=== PATIENT | female | born 1945 | race Two or more races ===

== ENCOUNTER 2018-09-01 17:06 | Emergency (ER) | payer MEDICARE, MEDICAID ==
[~2018-09-01] VITALS: Ht 170.2 cm; Wt 74.8 kg
--- NOTE | 2018-09-01 17:12 | NUR ---
BIB [id number]. PT AMBULATED FROM EMS [facility] TO W/C, PT WAS TRIAGED AND PLACED IN ER WAITING ROOM. THERE ARE NO AVAILABLE ER BEDS AT THIS TIME.
--- NOTE | 2018-09-01 17:54 | NUR ---
PT PLACED IN ROOM 2A.
--- NOTE | 2018-09-01 18:10 | NUR ---
Pt states she can not recall her home medications at this time, pt states her will come in later with more information.
--- NOTE | 2018-09-01 18:12 | NUR ---
PATIENT BEING SEEN BY JOSEY ROMERO.
[2018-09-01] MEDS ORDERED: LIDOCAINE HCL 2% 20 ML VIAL TP ONE (18:45)
[2018-09-01] MEDS ORDERED: TDAP DIPH,PERTUSS,TET VAC/PF 0.5 ML DISP.SYRIN IM ONE ×2 (18:45→18:47)
[2018-09-01] MEDS ORDERED: SODIUM BICARBONATE 4.2 % (NEUT) 5 ML VIAL TP ONE (18:45)
--- NOTE | 2018-09-01 18:53 | NUR ---
PATIENT SEEN ALREADY FOR ER PHYSICIAN. CXR DONE OF RIGHT ARM
--- NOTE | 2018-09-01 19:10 | NUR ---
REPORTED TO ONCOMING SHIFT NELIA ALVAREZ.
[2018-09-01] MEDS ORDERED: CEFAZOLIN 1 G VIAL IM ONE (20:00)
[2018-09-01] MEDS ORDERED: CEFAZOLIN 1 G VIAL ONE (20:03)
--- NOTE | 2018-09-01 20:20 | NUR ---
Patient discharged to home in stable conditon. Written and verbal after care instructions given. Patient verbalizes understanding of instructions. Pt ambulated out of ER with steady gait, no acute signs of distress, VSS, all belongings taken.
[2018-09-01 20:22] VITALS: BP 142/75
== END 2018-09-01 20:23 | disposition home or self-care (01) ==
LOC: ER 17:07
DX: S63.282A Dislocation of proximal interphalangeal joint of right middle finger, initial encounter (principal); S61.216A Laceration without foreign body of right little finger without damage to nail, initial encounter; W01.0XXA Fall on same level from slipping, tripping and stumbling without subsequent striking against object, initial encounter; Y93.89 Activity, other specified; Y92.89 Other specified places as the place of occurrence of the external cause; Y99.8 Other external cause status
CPT/HCPCS: 12001; 26770; 73130; 90471; 90715; 96372; 99284; J0690; J3490; A4217; A4663

== ENCOUNTER 2018-09-03 17:50 | Emergency (ER) | payer MEDICARE, MEDICAID ==
[~2018-09-03] VITALS: Ht 170.2 cm; Wt 74.8 kg
[2018-09-03] MEDS ORDERED: [UNRECOGNIZED DRUG - REMARK] (18:12)
--- NOTE | 2018-09-03 18:24 | NUR ---
JOSEY MARTINEZ AT BEDSIDE FOR MSE.
[2018-09-03] MEDS ORDERED: CLINDAMYCIN PHOSPHATE 600 MG/4 ML VIAL ONE (18:40)
[2018-09-03] MEDS ORDERED: CLINDAMYCIN PHOSPHATE 600 MG/4 ML VIAL IM ONE (18:45)
--- NOTE | 2018-09-03 19:08 | NUR ---
Patient discharged to home in stable conditon. Written and verbal after care instructions given. Patient verbalizes understanding of instructions. PT D/C W/ PRESCRIPTION. ALL BELONGINGS W/ PT. PT SELF-AMBULATED W/O DIFFICULTY.
[2018-09-03 19:09] VITALS: BP 140/77
== END 2018-09-03 19:09 | disposition home or self-care (01) ==
LOC: ER 17:52
DX: S61.216D Laceration without foreign body of right little finger without damage to nail, subsequent encounter (principal); L08.9 Local infection of the skin and subcutaneous tissue, unspecified; Z88.0 Allergy status to penicillin; W19.XXXD Unspecified fall, subsequent encounter
CPT/HCPCS: 96372; 99283; J3490; A4663

== ENCOUNTER 2018-09-04 18:03 | Emergency (ER) | payer MEDICARE, MEDICAID ==
[~2018-09-04] VITALS: Ht 170.2 cm; Wt 74.8 kg
[~2018-09-04 18:03] MED LIST: [UNRECOGNIZED DRUG - REMARK]
--- NOTE | 2018-09-04 18:47 | NUR ---
Pt seen and examined by Dr Terry.
[2018-09-04 18:52] VITALS: BP 105/56
--- NOTE | 2018-09-04 18:58 | NUR ---
Patient discharged to home in stable conditon. Written and verbal after care instructions given. Patient verbalizes understanding of instructions.
== END 2018-09-04 18:58 | disposition home or self-care (01) ==
LOC: ER 18:04
DX: L03.012 Cellulitis of left finger (principal); S61.217D Laceration without foreign body of left little finger without damage to nail, subsequent encounter; S63.257D Unspecified dislocation of left little finger, subsequent encounter; Z88.0 Allergy status to penicillin; Z79.899 Other long term (current) drug therapy; X58.XXXD Exposure to other specified factors, subsequent encounter
CPT/HCPCS: A4663

== ENCOUNTER 2018-09-12 17:36 | Emergency (ER) | payer MEDICARE, MEDICAID ==
[~2018-09-12] VITALS: Ht 170.2 cm; Wt 75.3 kg
--- NOTE | 2018-09-12 18:40 | NUR ---
YAMILETH THURSTON REMOVED THE SUTURES PER MD WITHOUT DIFFICULTY. PT TOLERATED WELL.
--- NOTE | 2018-09-12 18:43 | NUR ---
Patient discharged to home in stable conditon. Written and verbal after care instructions given. Patient verbalizes understanding of instructions.
--- NOTE | 2018-09-12 18:43 | NUR ---
Patient discharged to home in stable conditon. Written and verbal after care instructions given. Patient verbalizes understanding of instructions.
== END 2018-09-12 18:44 | disposition home or self-care (01) ==
LOC: ER 17:37
DX: S61.216D Laceration without foreign body of right little finger without damage to nail, subsequent encounter (principal); Z88.0 Allergy status to penicillin; X58.XXXD Exposure to other specified factors, subsequent encounter
CPT/HCPCS: A4663